=== PATIENT | female | born 1985 | race Caucasian/White ===

== ENCOUNTER 2017-04-24 10:19 | Emergency (ER) | payer MEDICAID, OTHER ==
--- NOTE | 2017-04-24 10:46 | CPEKG ---
Heart Rate: 60 RR Interval: 1000 P-R Interval: 152 QRSD Interval: 78 QT Interval: 408 QTC Interval: 408 P Ventura: 20 QRS Ventura: 13 T Wave Ventura: 63 EKG Severity - OTHERWISE NORMAL ECG - EKG Impression: SINUS ARRHYTHMIA, RATE 49-74 Electronically Signed By: Martha Duffy 24-Apr-2017 11:34:29
[2017-04-24] MEDS ORDERED: MECLIZINE HCL 25 MG TAB PO ONE (10:57)
[2017-04-24 11:13] LABS: % IMMATURE GRANULYOCYTES 0.3 % (0.0-1.1); ABSOLUTE IMMATURE GRANULOCYTES 0.02 10^3/uL (0.00-0.10); ADD DIFF? NO; ADD MORPH? NO; ADD SCAN? NO; ATYPICAL LYMPHOCYTE FLAG 10 (0-99); FRAGMENT RBC FLAG 0 (0-99); HEMATOCRIT 42.7 % (38.0-47.0); HEMOGLOBIN 14.6 g/dL (12.6-16.3); LEFT SHIFT FLG 0 (0-99); LIPEMIA HEMOLYSIS FLAG 90 (0-99); MEAN CELL HEMOGLOBIN 31.7 pg (27.9-34.1); MEAN CELL HEMOGLOBIN CONCENTR. 34.2 g/dL (32.4-36.7); MEAN CELL VOLUME 92.6 fL (81.5-99.8); MEAN PLATELET VOLUME 9.9 fL (8.7-11.7); PLATELET CLUMPS FLAG 0 (0-99); PLATELET COUNT 248 10^3/uL (150-400); RED BLOOD CELL COUNT 4.61 10^6/uL (4.18-5.33); RED CELL DISTRIBUTION WIDTH 12.3 % (11.5-15.2)
--- NOTE | 2017-04-24 11:19 | EDPHY ---
H & P Stated Complaint: CP/DIZZINESS/tingling in chest. Time Seen by Provider: 04/24/17 10:32 HPI/ROS: CHIEF COMPLAINT: Dizziness, chest pain HISTORY OF PRESENT ILLNESS: This is a healthy immunocompetent 31-year-old female who presents with dizziness. This began at 3:00 a.m. when she awoke, needing to use the bathroom. She states that she was "overwhelmingly dizzy " and could barely walk to the bathroom. The dizziness was accompanied by nausea and a feeling of flushing. She describes it as a "kaleidoscope" sensation. She has had similar episodes in the past but none of them this severe. She states that the dizziness is now significantly better, but comes in wave. It now seems to be more of a lightheadedness. She has had lightheadedness when she stands up quickly, but the symptoms she is now describing or different from that sensation. She also reports a mild global headache. She has not taken any medication for headache pain. No recent trauma. She has not had any recent earache and denies change in hearing. She has not had fever. A 2nd complaint is that she developed a sensation of "tingles "or "pressure "in her left chest when she awoke early this morning. She does not feel short of breath but thinks that her breathing is somewhat shallow. The chest discomfort persists. It is not pleuritic. She has no personal risk factors for venous thromboembolism. Family history is negative for early coronary artery disease. REVIEW OF SYSTEMS: A ten point review of systems was performed and is negative with the exception of the items mentioned in the HPI. She also reports that she had an IUD placed 3 days ago. She has had some lower abdominal cramping for which she has been taking ibuprofen. Her doses of ibuprofen have been modest. Past medical history: Negative Past surgical history: Negative Family history: 1. Father with valve replacement at age 75 2. Maternal grandfather with heart attack in his 60s Social history: General Appearance: Alert. Vital signs reviewed. Heart rate 52. Head: Normocephalic atraumatic. Eyes: Pupils equal and round, no conjunctival injection, no discharge. Anicteric. No nystagmus. ENT, Mouth: Mucous membranes are moist, no oropharyngeal erythema or edema. Neck: No lymphadenopathy, supple. No meningeal signs. Respiratory: Lungs are clear to auscultation; no wheezes, rales, or rhonchi. Cardiovascular: Regular rate and rhythm; no murmur, rub, or gallop. Gastrointestinal: Abdomen is soft and nontender, no masses or organomegaly, bowel sounds normal. Skin: Warm and dry, no rashes on exposed skin, normal color. Back: Nontender to palpation over the thoracolumbar spine. No CVAT. Extremities: No lower extremity edema, no calf tenderness or swelling. Neurological: Alert and oriented. Moving all four extremities easily and equally. Cranial nerves II through XII are examined and are intact (visual acuity not tested). Strength is 5 over 5 bilaterally with testing of all major motor groups. Sensation is intact to light touch over all 4 extremities. Deep tendon reflexes are 2+ in the biceps and knees bilaterally. Gait is normal. [id number] is performed accurately. Psychiatric: Normal affect. - Personal History LMP (Females 10-55): IUD In Place Current Tetanus Diphtheria and Acellular Pertussis (TDAP): Yes - Medical/Surgical History Hx Asthma: No Hx Chronic Respiratory Disease: No Hx Diabetes: No Hx Cardiac Disease: No Hx Renal Disease: No Hx Cirrhosis: No Hx Alcoholism: No Hx HIV/AIDS: No Hx Splenectomy or Spleen Trauma: No Other PMH: heart murmur. IUD Mon04/21/17 - Social History Smoking Status: Never smoked Constitutional: Initial Vital Signs Temperature (C) 36.4 C 04/24/17 10:27 Heart Rate 52 L 04/24/17 10:27 Respiratory Rate 16 04/24/17 10:27 Blood Pressure 118/67 04/24/17 10:27 O2 Sat (%) 100 04/24/17 10:27 O2 Delivery Mode Room Air Allergies/Adverse Reactions: Sulfa (Sulfonamide Antibiotics) Allergy (Verified 04/24/17 10:33) Home Medications: Medication Instructions Recorded Meclizine HCl 25 mg PO Q8 PRN #10 tablet 04/24/17 Medical Decision Making - Diagnostics EKG Interpretation: 12 lead EKG is interpreted in Trace master View by emergency department physician. Shows a sinus arrhythmia with a rate that varies from 49-74. No acute ischemic changes. Imaging Results: Imaging Impressions Chest X-Ray 04/24/17 10:56 Impression: Perihilar bronchial wall thickening. ED Course/Re-evaluation: Healthy 31-year-old female with complaint of dizziness and left-sided chest pain. The dizziness that she describes consistent with peripheral vertigo. She has had similar episodes in the past, although not this severe. I do not think that she needs CT scanning of the head and discussed this with her. Meclizine 25 mg orally being given. She has been able to ambulate in the department. CBC does not show anemia and I do not suspect significant blood loss (IUD placement three days ago could be a source of blood loss, but she has not had heavy vaginal bleeding). The etiology of her left-sided chest pain is unclear. An EKG does not show acute ischemic findings or evidence of pericarditis. She does not have signs of pericarditis on physical exam. Chest x-ray has been ordered. Will check a troponin although I think an acute coronary syndrome is highly unlikely. Will also check a D-dimer although PE is unlikely in this woman has a negative PERC score and low risk on Well's rule scoring. 11:30 a.m.: Patient re-evaluated. She is now feeling fine. She is wondering of her chest pain could possibly be related to anxiety in the setting of acute vertigo. This is certainly a possibility. CXR does not show pneumothorax or infiltrate--no explanation on CXR for chest pain. Troponin normal, as expected. D dimer also normal. She is comfortable returning home and is reassured by diagnosis of peripheral vertigo. Based upon the signs and symptoms, I do not suspect central origin of her vertigo. Differential Diagnosis: Dizziness including but not limited to peripheral and central causes of vertigo , orthostatic causes including dehydration, and blood loss. Chest pain including but not limited to myocardial ischemia, pulmonary embolus, chest wall pain, pleural inflammation and pulmonary infectious causes. - Data Points Laboratory Results: Laboratory Results 04/24/17 11:10 04/24/17 11:10 04/24/17 04/24/17 04/24/17 11:10 11:10 11:10 WBC 7.57 10^3/uL 10^3/uL (3.80-9.50) RBC 4.61 10^6/uL 10^6/uL (4.18-5.33) Hgb 14.6 g/dL g/dL (12.6-16.3) Hct 42.7 % % (38.0-47.0) MCV 92.6 fL fL (81.5-99.8) MCH 31.7 pg pg (27.9-34.1) MCHC 34.2 g/dL g/dL (32.4-36.7) RDW 12.3 % % (11.5-15.2) Plt Count 248 10^3/uL 10^3/uL (150-400) MPV 9.9 fL fL (8.7-11.7) Neut % (Auto) 64.3 % % (39.3-74.2) Lymph % (Auto) 27.5 % % (15.0-45.0) [place] % (Auto) 6.6 % % (4.5-13.0) Eos % (Auto) 0.5 % L % (0.6-7.6) Baso % (Auto) 0.8 % % (0.3-1.7) Nucleat RBC Rel Count 0.0 % % (0.0-0.2) Absolute Neuts (auto) 4.87 10^3/uL 10^3/uL (1.70-6.50) Absolute Lymphs (auto) 2.08 10^3/uL 10^3/uL (1.00-3.00) Absolute Monos (auto) 0.50 10^3/uL 10^3/uL (0.30-0.80) Absolute Eos (auto) 0.04 10^3/uL 10^3/uL (0.03-0.40) Absolute Basos (auto) 0.06 10^3/uL 10^3/uL (0.02-0.10) Absolute Nucleated RBC 0.00 10^3/uL 10^3/uL (0-0.01) Immature Gran % 0.3 % % (0.0-1.1) Immature Gran # 0.02 10^3/uL 10^3/uL (0.00-0.10) D-Dimer < 0.27 ug/mLFEU ug/mLFEU (0.00-0.50) Sodium 137 mEq/L mEq/L (134-144) Potassium 4.1 mEq/L mEq/L (3.5-5.2) Chloride 102 mEq/L mEq/L (97-110) Carbon Dioxide 26 mEq/l mEq/l (22-31) Anion Gap 9 mEq/L mEq/L (8-16) BUN 9 mg/dL mg/dL (7-23) Creatinine 0.7 mg/dL mg/dL (0.6-1.0) Estimated GFR > 60 Glucose 86 mg/dL mg/dL (70-100) Calcium 9.3 mg/dL mg/dL (8.5-10.4) Troponin I < 0.012 ng/mL ng/mL (0.000-0.034) Medications Given: Discontinued Medications Meclizine HCl (Meclizine Hcl) 25 mg PO EDNOW ONE Stop: 04/24/17 10:58 Last Admin: 04/24/17 11:11 Dose: 25 mg Departure - Departure Disposition: Home, Routine, Self-Care Clinical Impression: Vertigo Chest pain Qualifiers: Chest pain type: other chest pain Qualified Code(s): R07.89 - Other chest pain Condition: Good Instructions: Chest Pain (ED), Benign Paroxysmal Positional Vertigo (ED) Additional Instructions: I am referring you to Dr. Bel Nielsen for primary care. I am providing a prescription for meclizine--a vertigo medication. If you experience dizziness, spinning, areoff balance, have associated nausea--try taking one of the meclizine tablets. I recommend that you carry some when you travel, just in case. Referrals: Bel Nielsen MD [Medical Doctor] - As per Instructions Prescriptions: Meclizine HCl 25 mg PO Q8 PRN #10 tablet PRN Reason: vertigo/dizziness
[2017-04-24 11:26] LABS: ANION GAP 9 mEq/L (8-16); CALCIUM 9.3 mg/dL (8.5-10.4); CARBON DIOXIDE 26 mEq/l (22-31); CHLORIDE 102 mEq/L (97-110); CREATININE 0.7 mg/dL (0.6-1.0); GLOMERULAR FILTRATION RATE > 60; GLUCOSE 86 mg/dL (70-100); POTASSIUM 4.1 mEq/L (3.5-5.2); SODIUM 137 mEq/L (134-144)
[2017-04-24 11:38] LABS: TROPONIN I < 0.012 ng/mL (0.000-0.034)
[2017-04-24 12:27] VITALS: BP 122/62; PULSE 74; RESP 18; TEMP 98; O2SAT 96
== END 2017-04-24 12:26 | disposition home or self-care (01) ==
LOC: CED 10:19
DX: R42 Dizziness and giddiness (principal); R07.89 Other chest pain
CPT/HCPCS: 71020-PO; 80048-PO; 84484-PO; 85025-PO; 85378-PO